=== PATIENT | female | born 1990 | race Caucasian/White ===

== ENCOUNTER 2017-08-09 22:11 | Emergency (ER) | payer BC ==
--- NOTE | 2017-08-09 22:16 | PDOC ---
History of Present Illness - General Chief Complaint: Injury Stated Complaint: FELL INJURING LEFT RIBCAGE Time Seen by Provider: 08/09/17 22:16 History Source: Patient Exam Limitations: No Limitations - History of Present Illness Initial Comments: 08/09/17 22:53 This is a 26-year-old female who comes in complaining of tripped and fell hitting her left ribs against a table. Patient is complaining of pain to the left rib cage area. Patient denies hitting her head or passing out. Patient denies any neck pain chest pain or abdominal pain. Patient is complaining of a bruise on her leg otherwise she says it is minor and she is able to ambulate without difficulty. PAST MEDICAL HISTORY: no significant history PAST SURGICAL HISTORY: no significant history FAMILY HISTORY: no pertinant history SOCIAL HISTORY: Pt lives with family and is employed. MEDICATIONS: reviewed ALLERGIES: As per nursing notes Review of Systems General: No fevers or chills, no weakness, no weight loss HEENT: No change in vision. No sore throat,. No ear pain CardioVascular: No chest pain or shortness of breath Respiratory:No cough, or wheezing. Gastrointestinal: no nausea, vomitting, diarrhea or constipation, No rectal bleeding Genitourinary: No dysuria, hematuria, or frequency Musculoskeletal: No joint or muscle pain or swelling Neurologic: No headache, vertigo, dizziness or loss of consciousness Psychiatric: nor depression Skin: No rashes or easy bruising Endocrine: no increased thirst or abnormal weight change Allergic: no skin or latex allergy All other systems reviewed and normal GENERAL: The patient is awake, alert, and fully oriented, in no acute distress. HEAD: Normal with no signs of trauma. EYES: Pupils equal, round and reactive to light, extraocular movements intact, sclera anicteric, conjunctiva clear. Chest: There is a contusion over the left lower rib area laterally. There is tenderness on palpation but no crepitus. Lungs: Breath sounds are equal bilateral with good air entry. There is some pain with deep inspiration. EXTREMITIES: Normal range of motion, no edema. NEUROLOGICAL: Normal speech, normal gait. grossly intact PSYCH: Normal mood, normal affect. SKIN: Warm, Dry, normal turgor, no rashes or lesions noted. X-ray no acute fracture Assessment and plan: This is a 26-year-old female who comes in complaining of left rib pain. There is a contusion of her left. However the x-rays negative for any acute pathology including fracture. Past History - Past Medical History Allergies/Adverse Reactions: Allergies Allergy/AdvReac Type Severity Reaction Status Date / Time No Known Allergies Allergy Unverified 08/09/17 22:21 Home Medications: Ambulatory Orders Albuterol Sulfate Inhaler - [Ventolin Hfa Inhaler -] 1 puff IH PRN PRN 08/09/17 *DC/Admit/Observation/Transfer Diagnosis at time of Disposition: Contusion of left chest wall Qualifiers: Encounter type: initial encounter Qualified Code(s): S20.212A - Contusion of left front wall of thorax, initial encounter - Discharge Dispostion Disposition: HOME Condition at time of disposition: Stable Admit: No - Referrals - Patient Instructions Additional Instructions: Motrin for pain Tylenol or Motrin as needed for pain. Return to the emergency department immediately with ANY new, persistent or worsening symptoms. Continue any medications as previously prescribed by your physician. You should follow up with your primary doctor as soon as possible regarding today's emergency department visit. . Please make sure your doctor reviews the results of your emergency evaluation. Thank you for coming to the Emergency Department today for your care. It was a pleasure to see you today. Please note that your evaluation is INCOMPLETE until you follow-up with your doctor. - Post Discharge Activity
[2017-08-09 22:20] VITALS: BP 127/69; PULSE 95; TEMP 98.3; BMI 48.2
== END 2017-08-09 23:02 | disposition home or self-care (01) ==
LOC: FER 22:11
DX: S20.212A Contusion of left front wall of thorax, initial encounter (principal); W18.39XA Other fall on same level, initial encounter; Y93.89 Activity, other specified; Y92.9 Unspecified place or not applicable
CPT/HCPCS: 71020-TC; 71101-TC; 84703; 99281-25